=== PATIENT | female | born 1980 | race Caucasian/White ===

== ENCOUNTER 2021-10-28 14:05 | Emergency (ER) | payer OTHER, SELFPAY ==
[2021-10-28 14:18] VITALS: BP 128/78; PULSE 88; RESP 88; TEMP 36.8; O2SAT 98
== END 2021-10-28 14:37 | disposition left against medical advice (07) ==
LOC: EXPGLEN 14:11
PROVIDERS: Emergency Provider Nurse Practitioner Family; PCP Internal Medicine Gastroenterology
DX: Z53.21 Procedure and treatment not carried out due to patient leaving prior to being seen by health care provider (principal)
CPT/HCPCS: 99199

== ENCOUNTER 2025-08-16 11:53 | Emergency (ER) | payer OTHER, SELFPAY ==
--- NOTE | ~2025-08-16 | CT_ITS ---
Elisha Pérez EXAMINATION: CT abdomen pelvis w con COMPARISON: None HISTORY: lower abd pain with left flank pain, poss stone TECHNIQUE: Axial images were obtained through the abdomen, pelvis post administration of IV contrast. Oral contrast was also administered. Coronal reconstruction images were obtained from the axial views. CT scan performed using dose optimization techniques including the following automated exposure control; adjustment of mA and/or kV; use of iterative reconstruction technique. Automatic exposure control was used to reduce radiation dose. Permanent radiation dose record is archived to PACS. FINDINGS: CT abdomen: LUNG BASES: The lung bases are clear. The visualized portions of the heart and pericardium are unremarkable. LIVER: Moderate hepatic steatosis. The main portal vein is patent. There is no intrahepatic biliary duct dilatation. SPLEEN: Unremarkable. KIDNEYS: Right Kidney: Unremarkable. No calculi. No hydronephrosis. Left Kidney: Left kidney lower pole simple appearing renal cyst 1 x 1 cm. 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 PANCREAS: Unremarkable. GALLBLADDER/BILIARY: Cholelithiasis. STOMACH AND ESOPHAGUS: Visualized stomach and esophagus within normal limits. BOWEL/MESENTERY: Moderate fecal content, no colitis or diverticulitis. Appendix normal, no inflammation surrounding the cecum. Mesentery normal. No thickened or dilated loops of small bowel. ADENOPATHY/RETROPERITONEUM: No lymphadenopathy. AORTA/VASCULATURE: Normal caliber aorta. FREE FLUID OR FREE AIR: No free fluid.. CT pelvis: SOLID ORGANS/REPRODUCTIVE: Unremarkable. BLADDER: Within normal limits. OSSEOUS STRUCTURES: No acute osseous abnormality.No suspicious lesions. OVERLYING SOFT TISSUES: Unremarkable. IMPRESSION: 1. No etiology identified to explain the patient's symptoms. Follow-up suggested if symptoms persist. Reviewed, dictated and finalized at location [facility]. [facility] IMPRESSION: 1. No etiology identified to explain the patient's symptoms. Follow-up suggeste d if symptoms persist.
[2025-08-16 12:01] VITALS: BP 115/75; PULSE 90; RESP 16; TEMP 36.4; O2SAT 97
--- NOTE | 2025-08-16 13:12 | ED_ITS ---
HPI - Abdominal Pain General Chief Complaint: Abdominal Pain <Addis Hernández PA-C - Last Filed: 08/18/25 14:13> Stated Complaint: abdominal pain, meth made worse <Addis Hernández PA-C - Last Filed: 08/18/25 14:13> Time Seen by Provider: 08/16/25 13:12 <Addis Hernández PA-C - Last Filed: 08/18/25 14:13> Focused HPI: This is a 45 year old female that presents to the ER for abdominal pain. Ongoing over the last week. Reports worsening last night after using meth. Denies fevers, vomiting, diarrhea. GENERAL: Well-appearing, well-nourished, and in no acute distress. HEAD: Normocephalic, atraumatic. CHEST: Clear to auscultation. ?No respiratory distress. HEART: Regular rate and rhythm.? NEURO: ?Alert and oriented x3. Patient screened in triage and initial orders placed.? ?Additional care and disposition to be based upon?diagnostic testing and treatment. <Addis Hernández PA-C - Last Filed: 08/18/25 14:13> History of Present Illness HPI narrative: Agree with the HPI. Patient reports pain is lower abdominal radiated to her left flank. Has had nausea but no vomiting. Does admit to using meth last night which worsened the pain. <Wade Kline DO - Last Filed: 08/16/25 22:10> Related Data Home Medications: Home Medications ?Medication ?Instructions ?Recorded ?Confirmed ?Last Taken ?Type metformin 500 mg tablet mg 10/28/21 Unknown History <Addis Hernández PA-C - Last Filed: 08/18/25 14:13> Allergies/Adverse Reactions: Allergies Allergy/AdvReac Type Severity Reaction Status Date / Time morphine AdvReac Intermediate Nausea and Verified 08/16/25 12:04 Vomiting <Addis Hernández PA-C - Last Filed: 08/18/25 14:13> Review of Systems 2 Review of Systems: Gen.: Denies fevers or chills Eyes: Denies eye pain or visual change ENT: Denies congestion Respiratory: Denies shortness of breath or cough CV: Denies chest pain or palpitations GI: As per HPI denies burning, urgency, frequency or hematuria Musculoskeletal: Denies back pain or muscle pain Neuro: Denies numbness, tingling, weakness or focal weakness Skin: Denies rash Except as documented, all other systems reviewed and negative <Wade Kline DO - Last Filed: 08/16/25 22:10> Exam 2 Narrative: APPEARANCE: No acute distress, nontoxic, resting in bed EYES: EOMI HEENT: Normocephalic, atraumatic, OMM RESPIRATORY: No respiratory distress Clear to auscultation bilaterally with no rhonchi wheezing or rales. CARDIOVASCULAR: Regular rate and rhythm without murmurs rubs or gallops. ABDOMINAL: Soft, lower abdominal tenderness to palpation, nondistended, no rebound or guarding MUSCULOSKELETAl: Moves all extremities. No clubbing, cyanosis or edema. NEURO: Awake and alert. Following commands, speech normal, no focal deficits. Lip smacking. SKIN:: Warm, dry. No rashes lesions or abrasions PSYCHIATRIC: Normal affect/mood, <Wade Kline DO - Last Filed: 08/16/25 22:10> Course Vital Signs Vital signs: Vital Signs Temperature 97.5 F L 08/16/25 12:01 Pulse Rate 90 08/16/25 12:01 Respiratory Rate 16 08/16/25 12:01 Blood Pressure 115/75 08/16/25 12:01 Pulse Oximetry 97 08/16/25 12:01 Oxygen Delivery Room Air 08/16/25 12:01 Temperature 97.5 F L 08/16/25 12:01 Pulse Rate 90 08/16/25 17:04 Respiratory Rate 14 08/16/25 17:04 Blood Pressure 185/101 H 08/16/25 17:04 Pulse Oximetry 93 08/16/25 17:04 Oxygen Delivery Room Air 08/16/25 12:01 <Addis Hernández PA-C - Last Filed: 08/18/25 14:13> Vital Signs Temperature 97.5 F L 08/16/25 12:01 Pulse Rate 90 08/16/25 12:01 Respiratory Rate 16 08/16/25 12:01 Blood Pressure 115/75 08/16/25 12:01 Pulse Oximetry 97 08/16/25 12:01 Oxygen Delivery Room Air 08/16/25 12:01 Temperature 97.5 F L 08/16/25 12:01 Pulse Rate 90 08/16/25 17:04 Respiratory Rate 14 08/16/25 17:04 Blood Pressure 185/101 H 08/16/25 17:04 Pulse Oximetry 93 08/16/25 17:04 Oxygen Delivery Room Air 08/16/25 12:01 <Wade Kline DO - Last Filed: 08/16/25 22:10> MDM - Abdominal Pain MDM Narrative Medical decision making narrative: 45-year-old female Presenting for lower abdominal pain. On initial evaluation patient was in no acute distress afebrile, hemodynamic stable. Differentials include but are not limited to: , ovarian cyst, ovarian torsion, uterine fibroid, PID, UTI, urinary retention, ureterolithiasis, constipation, appendicitis, enterocolitis, colitis, cancer, methamphetamine abuse Notable exam findings: Suprapubic tenderness to palpation Notable lab findings: CBC without significant abnormalities. CMP without significant abnormalities. UA likely consistent with a UTI. UDS positive for amphetamines and cannabinoids. Notable imaging findings: CT showed no acute process. Patient likely has a UTI causing her symptoms. There may be some level of the methamphetamines exacerbating the pain. She was given a dose of Rocephin as I was unsure about her follow-up. She was given a prescription for Keflex. She was advised follow-up with her PCP in the next week for evaluation. Patient was agreeable to the plan. Given strict return precautions. <Wade Kline DO - Last Filed: 08/16/25 22:10> Medical Records Attestation: I reviewed the patient's medical records. <Wade Kline DO - Last Filed: 08/16/25 22:10> Lab Data Attestation: I reviewed the patient's lab results. <Wade Kline DO - Last Filed: 08/16/25 22:10> Result diagrams: 08/16/25 13:43 08/16/25 13:43 <Addis Hernández PA-C - Last Filed: 08/18/25 14:13> Labs: Lab Results 08/16/25 Range/Units 13:43 WBC 9.3 (4.5-10.0) K/mm3 RBC 4.74 (4.2-5.4) M/mm3 Hgb 14.2 (12.0-15.0) g/dL Hct 42.6 (37.0-47.0) % MCV 89.9 (80-100) fl MCH 30.0 (26-34) pg MCHC 33.3 (32-36) g/dl RDW 13.5 (11.5-14.5) % Plt Count 279 (150-375) k/mm3 MPV 9.2 (7.4-10.4) fl Immature Gran % (Auto) 0.2 (0-0.5) % Neut % (Auto) 50.1 (45.5-73.1) % Lymph % (Auto) 40.6 (18.3-44.2) % Mckean % (Auto) 7.1 (2.6-8.5) % Eos % (Auto) 1.5 (0-4.4) % Baso % (Auto) 0.5 (0.2-1.2) % Lymph # (Auto) 3.79 H (0.9-3.2) K/mm3 Mckean # (Auto) 0.7 H (0.1-0.6) K/mm3 Eos # (Auto) 0.1 (0-0.3) K/mm3 Baso # (Auto) 0.1 (0.0-0.1) K/mm3 Abs Immat Gran (auto) 0.02 (0.00-0.031) K/mm3 Absolute Neuts (auto) 4.7 (1.3-6.7) K/mm3 Absolute Nucleated RBC 0.000 (0.0-0.012) K/mm3 Nucleated RBC % 0.0 (0.0-0.2) % Sodium 138 (137-145) mmol/L Potassium 3.7 (3.4-5.0) mmol/L Chloride 105 (98-107) mmol/L Carbon Dioxide 24 (22-30) mmol/L Anion Gap 9 (4-12) mmol/L BUN 20 H (7-17) mg/dL Creatinine 0.56 L (0.7-1.0) mg/dL Estim Creat Clear Calc 113 ml/min Estimated GFR > 60 (59 - ) Glucose 205 H (65-110) mg/dL Calcium 9.3 (8.4-10.2) mg/dL Total Bilirubin 1.1 (0.2-1.3) mg/dL AST 30 (14-36) U/L ALT 23 (6-35) U/L Alkaline Phosphatase 72 (38-126) U/L Total Protein 8.2 (6.3-8.2) g/dL Albumin 4.5 (3.5-5.1) g/dL Lipase 71 (23-300) U/L Urine Color Dark yellow (Yellow) Urine Appearance Cloudy H (Clear) Urine pH 5.0 (5.0-9.0) Ur Specific [place] 1.037 H (1.001-1.035) Urine Protein 1+ H (Negative) mg/dL Urine Glucose (UA) 3+ H (Negative) mg/dL Urine Ketones Trace H (Negative) mg/dL Ur Blood (Man) Negative (Negative) Urine Nitrate Negative (Negative) Urine Bilirubin 1+ H (Negative) Urine Urobilinogen 1.0 (<2.0) mg/dL Add Ur Microanalysis Reviewed Leukocyte Esterase Rfl 1+ H (Negative) JOANNA/UL Urine RBC 0-2 (0-2) /hpf Urine WBC 11-20 H (0-3) /hpf Ur Squamous Epith Cells Many H (Few) /hpf Urine Bacteria 2+ H /hpf Urine Casts 11-20 Urine Mucus Present /lpf POC Urine HCG, Qual Negative (Negative) Urine Opiates Screen Negative (Negative) Urine Methadone Screen Negative (Negative) Ur Barbiturates Screen Negative (Negative) Ur Phencyclidine Scrn Negative (Negative) Ur Amphetamine Screen Positive A (Negative) U Benzodiazepines Scrn Negative (Negative) Urine Cocaine Screen Negative (Negative) U Cannabinoids Screen Positive A (Negative) <Addis Hernández PA-C - Last Filed: 08/18/25 14:13> Lab Results 08/16/25 Range/Units 13:43 WBC 9.3 (4.5-10.0) K/mm3 RBC 4.74 (4.2-5.4) M/mm3 Hgb 14.2 (12.0-15.0) g/dL Hct 42.6 (37.0-47.0) % MCV 89.9 (80-100) fl MCH 30.0 (26-34) pg MCHC 33.3 (32-36) g/dl RDW 13.5 (11.5-14.5) % Plt Count 279 (150-375) k/mm3 MPV 9.2 (7.4-10.4) fl Immature Gran % (Auto) 0.2 (0-0.5) % Neut % (Auto) 50.1 (45.5-73.1) % Lymph % (Auto) 40.6 (18.3-44.2) % Mckean % (Auto) 7.1 (2.6-8.5) % Eos % (Auto) 1.5 (0-4.4) % Baso % (Auto) 0.5 (0.2-1.2) % Lymph # (Auto) 3.79 H (0.9-3.2) K/mm3 Mckean # (Auto) 0.7 H (0.1-0.6) K/mm3 Eos # (Auto) 0.1 (0-0.3) K/mm3 Baso # (Auto) 0.1 (0.0-0.1) K/mm3 Abs Immat Gran (auto) 0.02 (0.00-0.031) K/mm3 Absolute Neuts (auto) 4.7 (1.3-6.7) K/mm3 Absolute Nucleated RBC 0.000 (0.0-0.012) K/mm3 Nucleated RBC % 0.0 (0.0-0.2) % Sodium 138 (137-145) mmol/L Potassium 3.7 (3.4-5.0) mmol/L Chloride 105 (98-107) mmol/L Carbon Dioxide 24 (22-30) mmol/L Anion Gap 9 (4-12) mmol/L BUN 20 H (7-17) mg/dL Creatinine 0.56 L (0.7-1.0) mg/dL Estim Creat Clear Calc 113 ml/min Estimated GFR > 60 (59 - ) Glucose 205 H (65-110) mg/dL Calcium 9.3 (8.4-10.2) mg/dL Total Bilirubin 1.1 (0.2-1.3) mg/dL AST 30 (14-36) U/L ALT 23 (6-35) U/L Alkaline Phosphatase 72 (38-126) U/L Total Protein 8.2 (6.3-8.2) g/dL Albumin 4.5 (3.5-5.1) g/dL Lipase 71 (23-300) U/L Urine Color Dark yellow (Yellow) Urine Appearance Cloudy H (Clear) Urine pH 5.0 (5.0-9.0) Ur Specific [place] 1.037 H (1.001-1.035) Urine Protein 1+ H (Negative) mg/dL Urine Glucose (UA) 3+ H (Negative) mg/dL Urine Ketones Trace H (Negative) mg/dL Ur Blood (Man) Negative (Negative) Urine Nitrate Negative (Negative) Urine Bilirubin 1+ H (Negative) Urine Urobilinogen 1.0 (<2.0) mg/dL Add Ur Microanalysis Reviewed Leukocyte Esterase Rfl 1+ H (Negative) JOANNA/UL Urine RBC 0-2 (0-2) /hpf Urine WBC 11-20 H (0-3) /hpf Ur Squamous Epith Cells Many H (Few) /hpf Urine Bacteria 2+ H /hpf Urine Casts 11-20 Urine Mucus Present /lpf POC Urine HCG, Qual Negative (Negative) Urine Opiates Screen Negative (Negative) Urine Methadone Screen Negative (Negative) Ur Barbiturates Screen Negative (Negative) Ur Phencyclidine Scrn Negative (Negative) Ur Amphetamine Screen Positive A (Negative) U Benzodiazepines Scrn Negative (Negative) Urine Cocaine Screen Negative (Negative) U Cannabinoids Screen Positive A (Negative) <Wade Kline DO - Last Filed: 08/16/25 22:10> Imaging Data Attestation: I personally reviewed and interpreted this imaging study as follows: < Wade Kline DO - Last Filed: 08/16/25 22:10> Radiologist's impression: ITS Impressions Abdomen/Pelvis CT 08/16/25 16:36 IMPRESSION: 1. No etiology identified to explain the patient's symptoms. Follow-up suggested if symptoms persist. <Addis Hernández PA-C - Last Filed: 08/18/25 14:13> ITS Impressions Abdomen/Pelvis CT 08/16/25 16:36 IMPRESSION: 1. No etiology identified to explain the patient's symptoms. Follow-up suggested if symptoms persist. <Wade Kline DO - Last Filed: 08/16/25 22:10> Discharge Plan Discharge Clinical Impression: Methamphetamine abuse UTI (urinary tract infection) Qualifiers: Urinary tract infection type: acute cystitis Hematuria presence: without hematuria Qualified Code(s): N30.00 - Acute cystitis without hematuria <Addis Hernández PA-C - Last Filed: 08/18/25 14:13> Patient Disposition: Home <Addis Hernández PA-C - Last Filed: 08/18/25 14:13> Condition: Stable <EL Coronado Last Filed: 08/18/25 14:13> Instructions: Antibiotic Form, Urinary Tract Infection in Women (DC), Methamphetamine Use Disorder (ED) <Addis Hernández PA-C - Last Filed: 08/18/25 14:13> Additional Instructions: Please refrain from using methamphetamines. He were found have a UTI. Your given a prescription for Keflex, take this as prescribed. Follow up with her PCP in the next week for re-evaluation. Return to the ED for any new or worsening symptoms. <Addis Hernández PA-C - Last Filed: 08/18/25 14:13> Patient Language: Welsh <EL Coronado Last Filed: 08/18/25 14:13> Prescriptions: New cephalexin 500 mg capsule 500 mg PO Q12H 7 Days Qty: 14 0RF No Action metformin 500 mg tablet <EL Coronado Last Filed: 08/18/25 14:13> Follow-up/Referrals: Romeo,Ezra Blaes MD [Primary Care Provider] <Addis Hernández PA-C - Last Filed: 08/18/25 14:13>
--- NOTE | 2025-08-16 13:17 | PC.NURSE ---
Pt called for MSE orders, no response
--- NOTE | 2025-08-16 13:41 | PC.NURSE ---
no answer for ED treatment room at 1646
[2025-08-16 13:47] LABS: BEDSIDEPREGUCG Negative (Negative)
[2025-08-16 14:05] LABS: Hematocrit 42.6 % (37.0-47.0); Hemoglobin 14.2 g/dL (12.0-15.0); Immature Granulocyte Percent A 0.2 % (0-0.5); Lymphocytes Absolute Auto 3.79 K/mm3 (0.9-3.2); Mean Corpuscular HGB Conc 33.3 g/dl (32-36); Mean Corpuscular Hemoglobin 30.0 pg (26-34); Mean Corpuscular Volume 89.9 fl (80-100); Nucleated Red Blood Cells Absolute Auto 0.000 K/mm3 (0.0-0.012); Nucleated Red Blood Cells Perc 0.0 % (0.0-0.2); Platelet Count Result 279 k/mm3 (150-375); Red Blood Count 4.74 M/mm3 (4.2-5.4); White Blood Count 9.3 K/mm3 (4.5-10.0)
[2025-08-16 14:17] LABS: Alanine Aminotransferase 23 U/L (6-35); Albumin Level 4.5 g/dL (3.5-5.1); Alkaline Phosphatase 72 U/L (38-126); Anion Gap 9 mmol/L (4-12); Aspartate Amino Transferase 30 U/L (14-36); Bilirubin,Total 1.1 mg/dL (0.2-1.3); Blood Urea Nitrogen 20 mg/dL (7-17); Calcium 9.3 mg/dL (8.4-10.2); Carbon Dioxide 24 mmol/L (22-30); Chloride 105 mmol/L (98-107); Estimated CRCL calculation 113 ml/min; Estimated Glomerular Filt Rate > 60; Glucose 205 mg/dL (65-110); Lipase 71 U/L (23-300); Potassium 3.7 mmol/L (3.4-5.0); Sodium 138 mmol/L (137-145); Total Protein 8.2 g/dL (6.3-8.2)
[2025-08-16 14:22] LABS: Add Urine Microscopic? YES; Appearance Urine Cloudy (Clear); Glucose Urine UA 3+ mg/dL (Negative); Leukocyte Esterase Ur 1+ LEU/UL (Negative); Need Manual Microscopic Reviewed; Nitrate Urine Negative (Negative); Specific Grav Ur 1.037 (1.001-1.035)
[2025-08-16 14:27] VITALS: BP 168/99; PULSE 88; RESP 16; O2SAT 96
[2025-08-16 15:28] LABS: Cannabinoid Screen Urine Positive (Negative)
[2025-08-16 15:50] VITALS: BP 166/95; PULSE 97; RESP 14; O2SAT 96
[2025-08-16 17:04] VITALS: BP 185/101; PULSE 90; RESP 14; O2SAT 93
[2025-08-16] MEDS: cefTRIAXone 2 GM in SODIUM CHLORIDE 0.9% IV 100 ML 200 ML IVPB (17:43)
--- OUTSIDE RECORDS SUMMARY | 2025-08-16 20:06 | XMS_ITS | Clinical Summary ---
Author Organization [facility] Address [address] [place] [address] Care Team Providers Care Systems Development Consultant Name Role Phone Unavailable Primary Care Provider Unavailabl e Source Comments [facility],non-owned Affiliates and Associated Physician Practices is amultiple site organization consisting of ambulatory clinics and hospital sitesin [place], [place], [place] and [place]. This disclosure is being madepursuant to the Care Everywhere program and may not contain all information available regarding this patient. Last updated 18.[facility] Social History Tobacco Use Types Packs/Day Years Used Date Smoking Tobacco: Never Assessed Comments Unknown Sex and Gender Information Value Date Recorded Sex Assigned at Not on file Legal Sex Female 7:43 AM [employer] Gender Identity Not on file Sexual Orientation Not on file Plan of Treatment Health Maintenance Due Date Last Done Comments COLOGUARD (AGES 45-75) - COL ON CA SCREENING 1978 COLON MONITORING 1978 COLONOSCOPY - COLON CA SCREENING 1978 CT COLONOGRAPHY - COLON CA SCREENING 1978 Colorectal Cancer Screening 1978 FIT - COLON CA SCREENING 1978 FLEX SIG - COLON CA SCREENING 1978 LIPID TESTING 1978 MAMMOGRAM 1978 HIV SCREENING 1993 HEPATITIS C SCREENING 06/27/1996 DTAP/TDAP/TD VACCINES (1 - Tdap) 1997 HEPATITIS B VACCINE (1 of 3 - 19+ 3-dose series) 1997 DEPRESSION SCREENING 10/11/2024 COVID-19 VACCINE (1 - 2023-2 5 season) 2025 INFLUENZA VACCINE (#1) 2025 ZOSTER VACCINE (1 of 2) 2028 HIB VACCINE Aged Out No longer eligi ble based on patient's age to complete this topic HPV VACCINE Aged Out No longer eligi ble based on patient's age to complete this topic MENINGOCOCCAL (Group B) VACC INE SHARED DECISION-MAKING Aged Out No longer eligibl e based on patient's age to complete this topic MENINGOCOCCAL GROUPS A/C/Y/W VACCINE Aged Out No longer eligible b ased on patient's age to complete this topic PNEUMOCOCCAL VACCINE Aged Out No long er eligible based on patient's age to complete this topic
== END 2025-08-16 18:03 | disposition home or self-care (01) ==
PROVIDERS: Physician Assistant; Emergency Provider Student in an Organized Health Care Education/Training Program; PCP Internal Medicine Gastroenterology
DX: N30.00 Acute cystitis without hematuria (principal); F15.10 Other stimulant abuse, uncomplicated
CPT/HCPCS: 36415; 74177; 80053; 80307; 81001; 81025; 83690; 85025; 96365; 99284; J0696; Q9967